=== PATIENT | male | born 1965 | race Caucasian/White ===

== ENCOUNTER 2025-02-16 15:43 | Emergency (ER) | payer OTHER ==
[~2025-02-16] VITALS: Ht 190.5 cm; Wt 97.5 kg
[2025-02-16] MEDS ORDERED: CEPH500 PO (18:03)
[2025-02-16] MEDS ORDERED: LORCET 5-325 M1 EACH PO (18:03)
== END 2025-02-16 18:07 | disposition home or self-care (01) ==
LOC: ER 15:43
DX: S62.632A Displaced fracture of distal phalanx of right middle finger, initial encounter for closed fracture (principal); W22.8XXA Striking against or struck by other objects, initial encounter
CPT/HCPCS: 11760; 12002; 73140; 90471; 90715; 99283-25; A9270